=== PATIENT | female | born 1955 | race Two or more races ===

== ENCOUNTER 2024-03-21 10:43 | Outpatient (CLI) | payer OTHER ==
[~2024-03-21 10:43] MED LIST: FLOVENT 44MCG7.9 GM IH
== END 2024-03-21 10:46 | disposition home or self-care (01) ==
LOC: SONOGRAMA 10:43
PROVIDERS: ATTEND Pathology Anatomic Pathology
DX: D34 Benign neoplasm of thyroid gland (principal); E07.89 Other specified disorders of thyroid; E04.2 Nontoxic multinodular goiter